=== PATIENT | male | born 1960 | race Caucasian/White ===

== ENCOUNTER 2021-07-22 06:57 | Day surgery (SDC) | payer OTHER ==
[2021-07-16 14:37] VITALS: BMI 26.4
[~2021-07-22 06:57] MED LIST: LACTATED RINGERS 1,000 ML IV SCH; LIDOCAINE 1% (10MG/ML) FOR IV START INTRADERMA PRN
[2021-07-22 07:25] VITALS: RESP 16; TEMP 97.4
[2021-07-22] MEDS ORDERED: PROPOFOL 10 MG/ML 20 ML VIAL IV ONE (07:38)
[2021-07-22] MEDS ORDERED: LIDOCAINE 1% INJ 10MG/ML (20 ML MDV) ONE (07:38)
[2021-07-22 07:39] LABS: Glucose,Whole Blood 143 mg/dL (75-99)
--- NOTE | 2021-07-22 08:03 | P.GSHP ---
History of Present Illness H&P Date: 07/22/21 CHIEF COMPLAINT: Colon screen HISTORY OF PRESENT ILLNESS: The patient is a 61-year-old male who presents for colon screen. He has family history of colon polyps and personal history of colon polyps. Lower endoscopy was offered for further evaluation and management. PAST MEDICAL HISTORY: Please see list. PAST SURGICAL HISTORY: Please see list. MEDICATIONS: Please see list. ALLERGIES: Please see list. SOCIAL HISTORY: No illicit drug use FAMILY HISTORY: No reports of Crohn disease or ulcerative colitis. REVIEW OF ORGAN SYSTEMS: CONSTITUTIONAL: No reports of fevers or chills. CARDIOVASCULAR: Hypertensive heart disease ENDOCRINE: Diabetes type 2 PHYSICAL EXAM: VITAL SIGNS: Stable GENERAL: Well-developed pleasant in no acute distress. HEENT: No scleral icterus. Extraocular movements grossly intact. Moist buccal mucosa. NECK: Supple without lymphadenopathy. CHEST: Unlabored respirations. Equal bilateral excursions. CARDIOVASCULAR: Regular rate and rhythm. Distal 2+ pulses. ABDOMEN: Soft, nontender, nondistended. MUSCULOSKELETAL: No clubbing, cyanosis, or edema. ASSESSMENT: 1. Colon screen. 2. Hypertensive heart disease 3. Diabetes type 2 PLAN: 1. Recommend proceeding with a lower endoscopy Past Medical History Past Medical History: Diabetes Mellitus, GERD/Reflux, Hyperlipidemia, Hypertension History of Any Multi-Drug Resistant Organisms: None Reported Additional Past Surgical History / Comment(s): Surgery for broken bone in hand. Past Anesthesia/Blood Transfusion Reactions: No Reported Reaction Past Psychological History: No Psychological Hx Reported Smoking Status: Former smoker Past Alcohol Use History: Occasional Additional Past Alcohol Use History / Comment(s): Quit smoking 14-15 yrs ago. Past Drug Use History: Marijuana Additional Drug Use History / Comment(s): Marijuana use daily. Aware no use 24 hrs prior to procedure. - Past Family History Father Family Medical History: Cancer Additional Family Medical History / Comment(s): Colon Cancer. Medications and Allergies Home Medications Medication Instructions Recorded Confirmed Type Atorvastatin Calcium [Lipitor] 40 mg PO QAM 07/16/21 07/16/21 History Farxiga (Unknown Dose) 1 tab PO QAM 07/16/21 07/16/21 History Glimepiride (Unknown Dose) 1 tab PO BID 07/16/21 07/22/21 History Ibuprofen/Diphenhydramine HCl 2 each PO HS 07/16/21 07/16/21 History [Advil Pm Liqui-Gels] Metformin(Unknown Dose) 1 tab PO BID 07/16/21 07/16/21 History lisinopriL [Zestril] 5 mg PO QAM 07/16/21 07/16/21 History Allergies Allergy/AdvReac Type Severity Reaction Status Date / Time No Known Allergies Allergy Verified 07/16/21 14:38 Surgical - Exam Vital Signs Temp Pulse Resp BP Pulse Ox 97.4 F L 72 16 132/77 97 07/22/21 07:23 07/22/21 07:23 07/22/21 07:23 07/22/21 07:23 07/22/21 07:23 Results - Labs Abnormal Lab Results - Last 24 Hours (Table) 07/22/21 Range/Units 07:32 POC Glucose (mg/dL) 143 H (75-99) mg/dL
--- NOTE | 2021-07-22 08:06 | P.PCN ---
Date of Procedure: 07/22/21 Description of Procedure: PREOPERATIVE DIAGNOSIS: Colonoscopy screening. Personal history of colon polyps POSTOPERATIVE DIAGNOSIS: Colonoscopy screening. Personal history of colon polyps Diverticulosis, scattered. Internal and external hemorrhoids, grade 3 OPERATION: Colonoscopy to the cecum, ileocecal valve and appendiceal orifice. SURGEON: Jennifer Gil MD. ANESTHESIA: MAC. INDICATIONS: The patient is a 61-year-old male who presents for colonoscopy screening. Last colonoscopy 5 years ago. Benefits and risks were described and informed consent was obtained. DESCRIPTION OF PROCEDURE: The patient had undergone Suprep. The patient had been brought into the operating room and laid in the left lateral decubitus position. After adequate intravenous sedation, the rectum was examined with 2% lidocaine jelly. The prostate fossa was unremarkable. External hemorrhoids were encountered. The rectal tone was within normal limits. No lesions were palpated in the rectal vault. An Olympus colonoscope was advanced until the cecum, ileocecal valve and appendiceal orifice were clearly viewed. The prep was fair. Scattered diverticulosis was encountered. No colonic polyps were found. No evidence of focal colitis was found. Retroflexion of the scope demonstrated grade 3 internal hemorrhoids without active bleeding or inflammation. The colon was desufflated. The patient had tolerated the procedure well. Withdrawal time was over 6 minutes. FINDINGS: Aronchick preparation quality scale 3 (1-5) Internal hemorrhoids, grade 3 External prolapsed hemorrhoids, grade 3 Scattered diverticulosis No arteriovenous malformations. No adenomatous polyps. No focal colitis. RECOMMENDATIONS: Lower endoscopy in 5 years, 2025 Plan - Discharge Summary Discharge Rx Participant: No New Discharge Prescriptions: Continue Metformin(Unknown Dose) 1 tab PO BID RX: lisinopriL [Zestril] 5 mg PO QAM RX: Ibuprofen/Diphenhydramine HCl [Advil Pm Liqui-Gels] 2 each PO HS RX: Atorvastatin Calcium [Lipitor] 40 mg PO QAM Farxiga (Unknown Dose) 1 tab PO QAM Glimepiride (Unknown Dose) 1 tab PO BID Discharge Medication List Farxiga (Unknown Dose) 1 tab PO QAM 07/16/21 [History] Glimepiride (Unknown Dose) 1 tab PO BID 07/16/21 [History] Metformin(Unknown Dose) 1 tab PO BID 07/16/21 [History] RX: Atorvastatin Calcium [Lipitor] 40 mg PO QAM 07/16/21 [History] RX: Ibuprofen/Diphenhydramine HCl [Advil Pm Liqui-Gels] 2 each PO HS 07/16/21 [History] RX: lisinopriL [Zestril] 5 mg PO QAM 07/16/21 [History] Follow up Appointment(s)/Referral(s): Jennifer Gil MD [STAFF PHYSICIAN] - As Needed Patient Instructions/Handouts: Hemorrhoids (DC), Diverticulosis (GEN), Diverticulosis Diet (GEN) Activity/Diet/Wound Care/Special Instructions: Repeat colonoscopy 5 years, 2025 Discharge Disposition: HOME SELF-CARE
[2021-07-22 08:21] VITALS: BP 145/80; PULSE 78
== END 2021-07-22 08:48 | disposition home or self-care (01) ==
LOC: ORWHC2ENDO 06:57
PROVIDERS: ATTEND Surgery Plastic and Reconstructive Surgery
DX: D12.6 Benign neoplasm of colon, unspecified (principal); Z86.010 Personal history of colon polyps; K64.8 Other hemorrhoids; K64.2 Third degree hemorrhoids; K57.90 Diverticulosis of intestine, part unspecified, without perforation or abscess without bleeding
CPT/HCPCS: G0121; J2001; J2704

== ENCOUNTER 2021-09-15 12:25 | Emergency (ER) | payer OTHER ==
[2021-09-15] MEDS ORDERED: ONDANSETRON 4 MG/2 ML VIAL IM STA (13:18)
--- NOTE | 2021-09-15 13:24 | ED ---
General Adult HPI - General Chief complaint: Nausea/Vomiting/Diarrhea Stated complaint: shingles Time Seen by Provider: 09/15/21 12:59 Source: patient Mode of arrival: ambulatory Limitations: no limitations - History of Present Illness Initial comments: This is a 61 year old male who presents to the emergency department with worsening pain associated with shingles and nausea/vomiting. He saw Dr. Chamberlain, ophthalmology, at [facility] yesterday, and was started on Oral Valtrex and eye drops for herpes zoster ophthalmicus of the left eye. He also has a follow up appointment in 2 days. His eye has gotten progressively more painful since starting the medication. Denies any blurred vision or other visual changes. His symptoms did initially begin 4 days ago indicating he started the antiviral treatment at the 72hr [place]. This morning he became nauseous and has had several episodes of emesis, which is the newest symptom for him. States that he has been unable to keep anything down. - Related Data Home Medications Medication Instructions Recorded Confirmed Atorvastatin Calcium [Lipitor] 40 mg PO QAM 07/16/21 09/15/21 Ibuprofen/Diphenhydramine HCl 2 tab PO HS PRN 07/16/21 09/15/21 [Advil Pm Liqui-Gels] lisinopriL [Zestril] 5 mg PO QAM 07/16/21 09/15/21 Dapagliflozin Propanediol [Farxiga] 10 mg PO DAILY 09/15/21 09/15/21 Glimepiride [Amaryl] 4 mg PO BID 09/15/21 09/15/21 metFORMIN HCL [Glucophage] 1,000 mg PO BID 09/15/21 09/15/21 valACYclovir HCL 1,000 mg PO TID 09/15/21 09/15/21 Allergies Allergy/AdvReac Type Severity Reaction Status Date / Time No Known Allergies Allergy Verified 09/15/21 13:58 Review of Systems ROS Statement: Those systems with pertinent positive or pertinent negative responses have been documented in the HPI. ROS Other: All systems not noted in ROS Statement are negative. Constitutional: Reports: fever, chills Eyes: Reports: eye pain. Denies: eye discharge, vision change ENT: Denies: ear pain, throat pain Respiratory: Denies: cough, dyspnea Cardiovascular: Denies: chest pain, palpitations Gastrointestinal: Reports: nausea, vomiting Genitourinary: Denies: urgency, dysuria Skin: Reports: rash Neurological: Denies: headache, weakness Past Medical History Past Medical History: Diabetes Mellitus, GERD/Reflux, Hyperlipidemia, Hypertension History of Any Multi-Drug Resistant Organisms: None Reported Additional Past Surgical History / Comment(s): Surgery for broken bone in hand. Past Anesthesia/Blood Transfusion Reactions: No Reported Reaction Past Psychological History: No Psychological Hx Reported Smoking Status: Former smoker Past Alcohol Use History: Occasional Past Drug Use History: Marijuana - Past Family History Father Family Medical History: Cancer Additional Family Medical History / Comment(s): Colon Cancer. General Exam Limitations: no limitations General appearance: alert, in no apparent distress Eye exam: Present: conjunctival injection, other (herpetiform vesicles on an erythematous base on the left side of the forhead, periocular skin, and eyelids. ) ENT exam: Present: normal exam, normal oropharynx, mucous membranes moist Respiratory exam: Present: normal lung sounds bilaterally. Absent: respiratory distress, wheezes, rales, rhonchi, stridor Cardiovascular Exam: Present: regular rate, normal rhythm, normal heart sounds. Absent: systolic murmur, diastolic murmur, rubs, gallop, clicks GI/Abdominal exam: Present: soft, normal bowel sounds. Absent: distended, tenderness, guarding, rebound, rigid Neurological exam: Present: alert, oriented X3, CN II-XII intact Psychiatric exam: Present: normal affect, normal mood Skin exam: Present: other (herpetiform vesicles on an erythematous base consistent with herpes zoster ophthalmicus of the left eye) Course Vital Signs 09/15/21 09/15/21 12:55 15:40 Temperature 100 F H 97.9 F Pulse Rate 79 90 Respiratory 16 14 Rate Blood Pressure 145/91 159/85 O2 Sat by Pulse 97 97 Oximetry - Reevaluation(s) Time: 14:25 (Patient feels improved after a dose of Zofran and morphine. Patient given jello and water, advsied that he needs to eat and drink before being discharged.) Time: 15:47 (Patient was able to eat and states that he feels much better. ) Medical Decision Making - Medical Decision Making This is a 61 year old male who presents to the emergency department for left sided herpes zoster ophthalmicus with associated nausea and vomiting. Patient's activated sludge attendant Dr. Chamberlain was contacted and advised that he continue on current treatment with the PO Valtrex and eye drops and plan to follow up in 2 days as scheduled. He recommended symptomatic control for the pain and nausea for the mean time. Will plan to send patient home with a starter pack for Tylenol with codeine and an Rx for Zofran. Advised to follow up with PCP in 1-2 days, at which time he can discuss continuing pain medication if needed. He was able to eat and drink before discharge. Return precautions reviewed in depth, the patient is instructed to return to the emergency department if symptoms worsen or do not improve. Patient verbalized understanding. This case was discussed in detail with the attending ED physician. Presentation, findings, and treatment plan discussed in detail as well. Disposition Clinical Impression: Herpes zoster ophthalmicus of left eye Disposition: HOME SELF-CARE Condition: Stable Instructions (If sedation given, give patient instructions): Shingles (ED), Acute Nausea and Vomiting (ED) Additional Instructions: Follow up with primary care provider and discuss additional pain medications at that appointment if needed. Follow up with ophthalmology as scheduled on 09/17/2021. Return to the emergency department if symptoms worsen or there is the development of visual changes, fevers, or chills. Is patient prescribed a controlled substance at d/c from ED?: No Referrals: Shasta Navarro MD [Primary Care Provider] - 1-2 days
[2021-09-15] MEDS ORDERED: MORPHINE SULFATE 2 MG/ML SYRINGE IM STA (13:32)
[2021-09-15] MEDS ORDERED: ACETAMINOPHEN TAB 500 MG TAB PO STA (14:28)
[2021-09-15] MEDS ORDERED: ACET/COD 300 MG/30 MG STARTER PACK 6 TAB BTL PO STA (14:28)
[2021-09-15 15:41] VITALS: BP 159/85; PULSE 90; RESP 14; TEMP 97.9
== END 2021-09-15 15:59 | disposition home or self-care (01) ==
LOC: EC 12:25
DX: B02.30 Zoster ocular disease, unspecified (principal); R11.2 Nausea with vomiting, unspecified; E11.9 Type 2 diabetes mellitus without complications; K21.9 Gastro-esophageal reflux disease without esophagitis; I10 Essential (primary) hypertension; F12.90 Cannabis use, unspecified, uncomplicated; Z87.891 Personal history of nicotine dependence; Z79.84 Long term (current) use of oral hypoglycemic drugs
CPT/HCPCS: 99283; 96372 ×2; J2405; J2270

== ENCOUNTER → 2021-10-17 | Outpatient (CLI) | payer OTHER ==
[2021-10-17 09:38] LABS: Appearance,Urine Clear (Clear); Bilirubin,Urine Negative (Negative); Blood,Urine Negative (Negative); Color,Urine Light Yellow; Glucose,Urine (UA) 4+ (Negative); Ketones,Urine Negative (Negative); Leukocyte Esterase,Urine Negative (Negative); Nitrite,Urine Negative (Negative); Protein,Urine Negative (Negative); Specific Gravity,Urine 1.019 (1.001-1.035); Urobilinogen,Urine <2.0 mg/dL (<2.0)
[2021-10-17 12:21] LABS: Basophils # (A) 0.04 X 10*3/uL (0.00-0.10); Basophils % (A) 0.4 %; Eosinophils # (A) 0.31 X 10*3/uL (0.04-0.35); HCT 42.4 % (39.6-50.0); HGB 13.7 g/dL (13.0-17.0); Immature Grans, Automated 0.4 %; Lymphocytes # (A) 2.91 X 10*3/uL (0.90-5.00); Lymphocytes % (A) 27.8 %; MCH 29.5 pg (27.0-32.0); MCHC 32.3 g/dL (32.0-37.0); MCV 91.4 fL (80.0-97.0); Monocytes # (A) 0.94 X 10*3/uL (0.20-1.00); NRBC Per 100 WBC 0 /100 WBCS (0.0-0.0); Neutrophils # (A) 6.24 X 10*3/uL (1.80-7.70); Neutrophils % (A) 59.4 %; Platelet Count 300 X 10*3/uL (140-440); RBC 4.64 X 10*6/uL (4.40-5.60); RDW 13.9 % (11.5-14.5); WBC 10.48 X 10*3/uL (4.50-10.00)
[2021-10-17 12:30] LABS: Rheumatoid Factor, Qnt <10 IU/mL (0-15)
[2021-10-17 12:37] LABS: ALT 20 U/L (10-49); AST 11 U/L (14-35); African American GFR (CKD) 119.7 (60.0-200.0); Albumin 5.2 g/dL (3.8-4.9); Albumin/Globulin Ratio 2.26 (1.60-3.17); Alkaline Phosphatase 72 U/L (41-126); BUN/Creat Ratio 21.71 Ratio (12.00-20.00); Blood Urea Nitrogen 15.2 mg/dL (9.0-27.0); Calcium 10.2 mg/dL (8.7-10.3); Carbon Dioxide 21.3 mmol/L (20.0-27.5); Chloride 103 mmol/L (96-109); Chol/HDL Ratio 3.06 Ratio; Globulin 2.3 g/dL (1.6-3.3); Glucose 202 mg/dL (70-110); LDL Cholesterol,Calculated 56.1 mg/dL (0.0-131.0); Magnesium 2.1 mg/dL (1.5-2.4); Non-African American GFR(CKD) 103.3 (60.0-200.0); Potassium 5.1 mmol/L (3.5-5.5); Sodium 138 mmol/L (135-145); Total Protein 7.5 g/dL (6.2-8.2)
[2021-10-17 18:07] LABS: Urine Creatinine 59.3 mg/dL (39.0-259.0)
== END | disposition home or self-care (01) ==
LOC: LABWHC1 08:25
PROVIDERS: ATTEND Internal Medicine
DX: I10 Essential (primary) hypertension (principal); E11.9 Type 2 diabetes mellitus without complications; E78.2 Mixed hyperlipidemia; H53.2 Diplopia
CPT/HCPCS: 36415; 80053; 80061; 81003; 82043; 82570; 83036; 83519; 83735; 84439; 84443; 85025; 86038; 86431

== ENCOUNTER → 2023-08-08 | Outpatient (CLI) | payer BC ==
--- NOTE | 2023-08-08 10:59 | NM ---
EXAMINATION TYPE: NM stress cardiolite complete DATE OF EXAM: 08/08/2023 COMPARISON: NONE CLINICAL INDICATION: Male, 63 years old with history of I25.10 ATHSCL HEART DISEASE OF [place] CORONAR Y ART; TECHNIQUE: After the intravenous administration of 9.9 mCi Tc 99m Sestamibi - Rest images obtained 4 5 minutes post injection. The patient exercised using a STARR protocol and 1 minute prior to peak e xercise was injected with 26.0 mCi Tc 99m Sestamibi - Stress images obtained 12 minutes post injectio n. FINDINGS: Targeted heart rate (135 bpm) was achieved during performance of the study (138 achieved with total e xercise time of 9 minutes). Review of stress and rest SPECT images demonstrates decreased perfusion a long the inferior wall with prominent adjacent GI activity. There is decreased perfusion appears slig htly more pronounced on stress images though findings are not corroborated on polar maps. Gated eva sis shows normal wall motion with an estimated left ventricular ejection fraction of 69 %. TID is ca lculated at 0.76. IMPRESSION: 1. Decreased perfusion along the inferior wall but with prominent adjacent GI activity. The decreased perfusion is more pronounced on stress but findings are not corroborated on polar maps. Suspect kamille fact here rather than old infarct or any underlying reversibility. Further clinical workup if indicat ed. 2. No other discrete reversibility is identified elsewhere.
--- NOTE | 2023-08-09 10:24 | CA ---
Exercise Nuclear Stress Test Report Name: Basil Hamilton Exam Date: 08/08/2023 09:49 Exam Location: [place] Stress Ht (in): 73 Wt (lb): 205 BSA: 2.17 Ordering Phys: Shasta Navarro MD Referring Phys: Shasta Navarro MD Technologist: Akhil Acuna Age: 63 Gender: M : 1960 Procedure CPT: Indications: I25.10 ATHSCL HEART DISEASE OF [place] CORONARY ART ICD-10 Codes: Patient History: Medications: METFORMIN, EZZETIMIBE, PLOGLITAZONE, GLIMAPRIDE Meds past 24 hrs: Pretest Chest Pain: STRESS TEST Colin Protocol Exercise Duration (min:sec): 09:[address] Depressions (mm): Angina Score: Miller Score: Resting HR (bpm): 74 Peak HR (bpm): 138 Resting BP (mmHg): 150 / 88 Peak BP (mmHg): 217 / 69 MPHR: 159 Target HR: 135 % MPHR: 87 METS: 10.3 Total Dose: Peak Dose: Atropine: Double Product: 87068 BP Response: Stress Termination: Reached target heart rate Stress Symptoms: No chest pain or symptoms Stress Summary: ECG ANALYSIS Resting ECG: Stress ECG: CONCLUSIONS Good exercise capacity and a Colin protocol, 9 minutes, greater than 10 minutes and achieved Heart rate increased from 60-130 beats a minute Elevated blood pressure at baseline, 150/88 mmHg Hypertensive response to exercise, 217/85 mmHg No ECG ms for ischemia arrhythmia Dr. Kenneth Nettles MD (Electronically Signed) Final Date: 09 August 2023 10:23
== END | disposition home or self-care (01) ==
LOC: RADNMMAIN 07:52
PROVIDERS: ATTEND Internal Medicine
DX: I25.10 Atherosclerotic heart disease of native coronary artery without angina pectoris (principal)
CPT/HCPCS: 93017; 78452; A9500

== ENCOUNTER 2023-08-12 11:43 | Emergency (ER) | payer BC ==
[2023-08-12] MEDS ORDERED: KETOROLAC 15 MG/ML 1 ML VIAL IVP STA (12:13)
[2023-08-12] MEDS ORDERED: ONDANSETRON 4 MG/2 ML VIAL IVP STA (12:13)
[2023-08-12] MEDS ORDERED: SODIUM CHLORIDE 0.9% 1,000 ML IV STA (12:13)
[2023-08-12] MEDS ORDERED: LABETALOL 5 MG/ML VIAL MDV IVP STA (12:26)
[2023-08-12] MEDS ORDERED: HYDROmorphone 1 MG/ML 1 ML SYRINGE IVP STA (12:26)
--- NOTE | 2023-08-12 12:26 | ED ---
Abdominal Pain HPI - General Chief Complaint: Abdominal Pain Stated Complaint: back pain Time Seen by Provider: 08/12/23 12:10 Source: patient, RN notes reviewed, old records reviewed Mode of arrival: ambulatory Limitations: no limitations - History of Present Illness Initial Comments: This is a 63-year-old male to the ER for evaluation today. Patient Plavix and back pain and more left-sided abdominal pain for a few hours now. Severe sudden onset of pain that may have led up a little bit currently. Positive nausea without vomiting no fevers no other complaints. No travel history no sick contacts. Patient has not had similar pain in the past MD Complaint: abdominal pain, flank pain -: hour(s) Location: bilateral flank Radiation: bilateral flank Migration to: suprapubic Severity: moderate, severe Severity scale (1-10): 9 Quality: sharp Consistency: constant Improves With: nothing, bowel movement Associated Symptoms: nausea, vomiting Treatments Prior to Arrival: other (0) - Related Data Home Medications Medication Instructions Recorded Confirmed Glimepiride [Amaryl] 4 mg PO BID 09/15/21 08/12/23 metFORMIN HCL [Glucophage] 1,000 mg PO BID 09/15/21 08/12/23 Ezetimibe [Zetia] 10 mg PO DAILY 08/12/23 08/12/23 Pioglitazone [Actos] 30 mg PO DAILY 08/12/23 08/12/23 Allergies Allergy/AdvReac Type Severity Reaction Status Date / Time No Known Allergies Allergy Verified 08/12/23 13:49 Review of Systems ROS Statement: Those systems with pertinent positive or pertinent negative responses have been documented in the HPI. ROS Other: All systems not noted in ROS Statement are negative. Past Medical History Past Medical History: Diabetes Mellitus, GERD/Reflux, Hyperlipidemia, Hypertension History of Any Multi-Drug Resistant Organisms: None Reported Additional Past Surgical History / Comment(s): Surgery for broken bone in hand. Past Anesthesia/Blood Transfusion Reactions: No Reported Reaction Past Psychological History: No Psychological Hx Reported Smoking Status: Former smoker Past Alcohol Use History: Occasional Past Drug Use History: Marijuana - Past Family History Father Family Medical History: Cancer Additional Family Medical History / Comment(s): Colon Cancer. General Exam Limitations: no limitations General appearance: alert, in no apparent distress Head exam: Present: atraumatic, normocephalic, normal inspection Eye exam: Present: normal appearance, PERRL, EOMI. Absent: scleral icterus, conjunctival injection, periorbital swelling ENT exam: Present: normal exam, mucous membranes moist Neck exam: Present: normal inspection. Absent: tenderness, meningismus, lymphadenopathy Respiratory exam: Present: normal lung sounds bilaterally. Absent: respiratory distress, wheezes, rales, rhonchi, stridor Cardiovascular Exam: Present: regular rate, normal rhythm, normal heart sounds. Absent: systolic murmur, diastolic murmur, rubs, gallop, clicks GI/Abdominal exam: Present: soft, normal bowel sounds. Absent: distended, tenderness, guarding, rebound, rigid Extremities exam: Present: normal inspection, full ROM, normal capillary refill. Absent: tenderness, pedal edema, joint swelling, calf tenderness Back exam: Present: normal inspection Neurological exam: Present: alert, oriented X3, CN II-XII intact Psychiatric exam: Present: normal affect, normal mood Skin exam: Present: warm, dry, intact, normal color. Absent: rash Course Vital Signs 08/12/23 08/12/23 08/12/23 11:47 12:48 15:00 Temperature 98.4 F 98.5 F Pulse Rate 83 84 70 Respiratory 26 H 18 Rate Blood Pressure 186/93 202/100 149/85 O2 Sat by Pulse 97 95 98 Oximetry - Reevaluation(s) Reevaluation #1: Medical record is reviewed Reevaluation #2: Patient's symptoms are improved Reevaluation #3: Patient informed of results questions answered Reevaluation #4: 08/12/23 13:29 Was pt. sent in by a medical professional or institution (, PA, EQUIPMENT MAINTENANCE SUPERINTENDENT, urgent care, hospital, or senior living...) When possible be specific @ -no Did you speak to anyone other than the patient for history (EMS, parent, family, police, friend...)? What history was obtained from this source @ -no Did you review nursing and triage notes (agree or disagree)? Why? @ -agree Are old charts reviewed (outside hosp., previous admission, EMS record, old EKG, old radiological studies, urgent care reports/EKG's, senior living records)? Report findings @ -yes Differential Diagnosis (chest pain, altered mental status, abdominal pain women, abdominal pain men, vaginal bleeding, weakness, fever, dyspnea, syncope, headache, dizziness, GI bleed, back pain, seizure, CVA, palpatations, mental health, musculoskeletal)? @ -prior EKG interpreted by me (3pts min.). @ -yes X-rays interpreted by me (1pt min.). @ -no CT interpreted by me (1pt min.). @ -yes positive for acute left-sided kidney stone U/S interpreted by me (1pt. min.). @ -no What testing was considered but not performed or refused? (CT, X-rays, U/S, labs)? Why? @ -none What meds were considered but not given or refused? Why? @ -none Did you discuss the management of the patient with other professionals (professionals i.e. , PA, EQUIPMENT MAINTENANCE SUPERINTENDENT, lab, RT, psych nurse, social services manager, applicator sprayer, teacher, property and supply officer, pillowcase folder)? Give summary @ -no Was smoking cessation discussed for >3mins.? @ -no Was critical care preformed (if so, how long)? @ -no Were there social determinants of health that impacted care today? How? (Homelessness, low income, unemployed, alcoholism, drug addiction, transportation, low edu. Level, literacy, decrease access to med. care, halfway, rehab)? @ -none Was there de-escalation of care discussed even if they declined (Discuss DNR or withdrawal of care, Hospice)? DNR status @ -no What co-morbidities impacted this encounter? (DM, HTN, Smoking, COPD, CAD, Cancer, CVA, ARF, Chemo, Hep., AIDS, mental health diagnosis, sleep apnea, morbid obesity)? @ -none Was patient admitted / discharged? Hospital course, mention meds given and route, prescriptions, significant lab abnormalities, going to OR and other pertinent info. @ - 63 male to ER for evaluation of kidney stone pain with kidney stone, pain is controlled patient can be discharged home Discharge Undiagnosed new problem with uncertain prognosis? @ -no Drug Therapy requiring intensive monitoring for toxicity (Heparin, Nitro, Insulin, Cardizem)? @ -no Were any procedures done? @ -no Diagnosis/symptom? @ -Left UVJ kidney stone Acute, or Chronic, or Acute on Chronic? @ -Acute Uncomplicated (without systemic symptoms) or Complicated (systemic symptoms)? @ -Complicated Side effects of treatment? @ -no Exacerbation, Progression, or Severe Exacerbation? @ -exacerbation Poses a threat to life or bodily function? How? (Chest pain, USA, PR, pneumonia, PE, COPD, DKA, ARF, appy, cholecystitis, CVA, Diverticulitis, Homicidal, Suicidal, threat to staff... and all critical care pts) @ -yes patient was in significant distress with possible cause being dissection no history of kidney stones Reevaluation #5: Differential Abdominal Pain Men: Appendicitis, cholecystitis, diverticulosis, ischemic bowel, pancreatitis, hepatitis, UTI, gastroenteritis, AAA, incarcerated hernia, bowel obstruction, constipation, inflammatory bowel, hepatitis, peptic ulcer disease, splenic infarction, perforated viscus, testicular torsion, this is not meant to be an all-inclusive list Medical Decision Making - Medical Decision Making 63 male to ER for evaluation of kidney stone pain with kidney stone, pain is controlled patient can be discharged home - Lab Data Result diagrams: 08/12/23 12:22 08/12/23 12:22 Lab Results 08/12/23 08/12/23 Range/Units 12:22 12:22 WBC 16.2 H (3.8-10.6) k/uL RBC 5.06 (4.30-5.90) m/uL Hgb 15.2 (13.0-17.5) gm/dL Hct 46.4 (39.0-53.0) % MCV 91.6 (80.0-100.0) fL MCH 30.1 (25.0-35.0) pg MCHC 32.8 (31.0-37.0) g/dL RDW 12.7 (11.5-15.5) % Plt Count 319 (150-450) k/uL MPV 8.6 Neutrophils % 76 % Lymphocytes % 16 % Monocytes % 5 % Eosinophils % 1 % Basophils % 0 % Neutrophils # 12.3 H (1.3-7.7) k/uL Lymphocytes # 2.6 (1.0-4.8) k/uL Monocytes # 0.8 (0-1.0) k/uL Eosinophils # 0.2 (0-0.7) k/uL Basophils # 0.0 (0-0.2) k/uL Sodium 137 (137-145) mmol/L Potassium 5.2 H (3.5-5.1) mmol/L Chloride 103 (98-107) mmol/L Carbon Dioxide 19 L (22-30) mmol/L Anion Gap 15 mmol/L BUN 20 (9-20) mg/dL Creatinine 0.97 (0.66-1.25) mg/dL Est GFR (CKD-EPI)AfAm >90 (>60 ml/min/1.73 sqM) Est GFR (CKD-EPI)NonAf 85 (>60 ml/min/1.73 sqM) Glucose 332 H (74-99) mg/dL Calcium 10.7 H (8.4-10.2) mg/dL Phosphorus 2.3 L (2.5-4.5) mg/dL Magnesium 1.8 (1.6-2.3) mg/dL Total Bilirubin 0.7 (0.2-1.3) mg/dL AST 26 (17-59) U/L ALT 33 (4-49) U/L Alkaline Phosphatase 97 (38-126) U/L Total Protein 8.4 H (6.3-8.2) g/dL Albumin 5.4 H (3.5-5.0) g/dL Amylase 66 (30-110) U/L Lipase 190 (23-300) U/L - EKG Data -: EKG Interpreted by Me (EKG is sinus 72 AK 172 QRS 92 QTC 396) - Radiology Data Radiology results: report reviewed (CT abdomen pelvis shows left UVJ calculus), image reviewed Disposition Clinical Impression: Abdominal pain, Abdominal colic, Left ureteral calculus Disposition: HOME SELF-CARE Condition: Good Instructions (If sedation given, give patient instructions): Abdominal Pain (ED) Is patient prescribed a controlled substance at d/c from ED?: No Referrals: Shasta Navarro MD [Primary Care Provider] - 1-2 days Time of Disposition: 14:30
[2023-08-12 12:38] LABS: Basophils % (A) 0 %; Eosinophils # (A) 0.2 k/uL (0-0.7); Eosinophils % (A) 1 %; HCT 46.4 % (39.0-53.0); HGB 15.2 gm/dL (13.0-17.5); Lymphocytes # (A) 2.6 k/uL (1.0-4.8); Lymphocytes % (A) 16 %; MCH 30.1 pg (25.0-35.0); MCHC 32.8 g/dL (31.0-37.0); MCV 91.6 fL (80.0-100.0); Mean Platelet Volume 8.6; Monocytes # (A) 0.8 k/uL (0-1.0); Monocytes % (A) 5 %; Neutrophils # (A) 12.3 k/uL (1.3-7.7); Neutrophils % (A) 76 %; Platelet Count 319 k/uL (150-450); RBC 5.06 m/uL (4.30-5.90); RDW 12.7 % (11.5-15.5); WBC 16.2 k/uL (3.8-10.6)
[2023-08-12 12:49] LABS: ALT 33 U/L (4-49); AST 26 U/L (17-59); African American GFR (CKD) >90 (>60 ml/min/1.73 sqM); Albumin 5.4 g/dL (3.5-5.0); Alkaline Phosphatase 97 U/L (38-126); Amylase 66 U/L (30-110); Anion Gap 15 mmol/L; Blood Urea Nitrogen 20 mg/dL (9-20); Calcium 10.7 mg/dL (8.4-10.2); Carbon Dioxide 19 mmol/L (22-30); Chloride 103 mmol/L (98-107); Glucose 332 mg/dL (74-99); Lipase 190 U/L (23-300); Magnesium 1.8 mg/dL (1.6-2.3); Non-African American GFR(CKD) 85 (>60 ml/min/1.73 sqM); Phosphorus 2.3 mg/dL (2.5-4.5); Potassium 5.2 mmol/L (3.5-5.1); Sodium 137 mmol/L (137-145); Total Bilirubin 0.7 mg/dL (0.2-1.3); Total Protein 8.4 g/dL (6.3-8.2)
--- NOTE | 2023-08-12 13:29 | CT ---
EXAMINATION TYPE: CT angio thor/abd pel aorta DATE OF EXAM: 08/12/2023 COMPARISON: None HISTORY: Abdominal pain. Right-sided flank pain. CT DLP: 1744.8 mGycm. Automated Exposure Control for Dose Reduction was Utilized. CONTRAST: CTA scan of the thorax, abdomen and pelvis is performed without and with IV Contrast, patient injecte d with 100 ml mL of Isovue 370. Three-D reconstructed images are created on an independent workstatio n and reviewed. FINDINGS: VASCULAR: Noncontrast images show no suspicious hyperdense material to suggest intramural hematoma. P ostcontrast images show satisfactory enhancement of the central pulmonary arteries. Prominent pulmona ry arteries raise concern for underlying pulmonary artery hypertension. Ascending aorta measures up t o 3.8 cm in diameter. There is a 4 vessel origin from aortic arch which is normal variant. Patent duc [place]ac artery, SMA, and ASHLEY. Patent bilateral single renal arteries. No significant stenosis. No linear hypodensity to suggest dissection. Ktyq-vg-lljvsnen peripheral mixed plaque in the infrarenal abdomin al aorta. No AAA. No significant stenosis in the iliac or femoral artery branch vessels. LUNGS: The lungs are grossly clear, there is no concerning parenchymal mass or nodule identified. T here is no pleural effusion or pneumothorax seen. The tracheobronchial tree is patent. MEDIASTINUM: There are no greater than 1 cm hilar or mediastinal lymph nodes. No cardiomegaly or pe ricardial effusion is seen. There is moderate coronary artery calcification seen. LIVER/GB: No significant abnormality is appreciated. PANCREAS: No significant abnormality is seen. SPLEEN: No significant abnormality is seen. ADRENALS: No significant abnormality is seen. KIDNEYS: There is 7 mm nonobstructing calculus right kidney axial image 62. There is 1 to 2 mm calcul us at left UVJ axial image 117. This is causing asymmetric mild left-sided hydronephrosis. BOWEL: No significant abnormality is seen. GENITAL ORGANS: Mildly enlarged prostate gland consistent with BPH. LYMPH NODES: No greater than 1cm abdominal or pelvic lymph nodes are appreciated. OSSEOUS STRUCTURES: Mpuz-jh-fiizmulk disc space narrowing at L5-S1 level. OTHER: No significant additional abnormality is seen. IMPRESSION: 1. No aortic dissection. 2. There is 1 to 2 mm calculus at left UVJ causing mild left-sided hydronephrosis.
[2023-08-12] MEDS ORDERED: ONDANSETRON 4 MG ODT STARTER PACK 2 TAB BTL PO STA (14:38)
[2023-08-12] MEDS ORDERED: ACET/COD 300 MG/30 MG STARTER PACK 6 TAB BTL PO STA (14:38)
[2023-08-12] MEDS ORDERED: TAMSULOSIN 0.4 MG CAP.ER.24H PO STA (14:38)
[2023-08-12] MEDS ORDERED: IBUPROFEN 600 MG STARTER PACK 4 TAB BTL PO STA (14:38)
[2023-08-12 15:46] VITALS: BP 149/85; PULSE 70; RESP 18; TEMP 98.5
== END 2023-08-12 15:42 | disposition home or self-care (01) ==
LOC: EC 11:43
DX: N13.2 Hydronephrosis with renal and ureteral calculous obstruction (principal); E11.9 Type 2 diabetes mellitus without complications; I10 Essential (primary) hypertension; E78.5 Hyperlipidemia, unspecified; F12.90 Cannabis use, unspecified, uncomplicated; Z79.84 Long term (current) use of oral hypoglycemic drugs; Z79.899 Other long term (current) drug therapy; Z87.891 Personal history of nicotine dependence
CPT/HCPCS: 36415; 80053; 82150; 83690; 83735; 84100; 85025; 71275; 74174; 99285; 96374; 96375 ×3; 96361 ×3; J2405; J1170; J1885; S0119; Q9967; J1920